=== PATIENT | female | born 1950 | race Two or more races ===

== ENCOUNTER 2018-08-08 | Inpatient (IN) | payer MEDICARE, MEDICAID ==
[~2018-08-08] VITALS: Ht 162.6 cm; Wt 65.8 kg
[2018-08-08] MEDS ORDERED: ONDANSETRON HCL 4MG/2ML INJ IV STA (06:29)
[2018-08-08] MEDS ORDERED: MORPHINE SULFATE 4 MG/ML CPJ (NOT FOR IM USE) IV STA (06:29)
[2018-08-08 07:41] LABS: BASOPHILS % 0.8 % (0.0-2.0); EOSINOPHILS % 3.6 % (0.0-5.0); HEMATOCRIT. 27.4 % (36.0-48.0); HEMOGLOBIN. 8.4 g/dL (12.0-16.0); LYMPHOCYTES % 22.3 % (20.0-50.0); MEAN CORPUSCULAR HEMOGLOBIN 19.7 pg (28.0-32.0); MEAN CORPUSCULAR VOLUME 64.3 fL (81.0-99.0); MEAN PLATELET VOLUME 7.4 fl (7.4-10.4); MONOCYTES % 10.5 % (2.0-8.0); NEUTROPHILS % 62.8 % (40.0-76.0); PLATELET 313 x1000/uL (130-400); RED BLOOD CELL COUNT 4.26 mill/uL (4.2-5.4)
[2018-08-08 07:52] LABS: CHLORIDE 112 mEq/L (98-107)
[2018-08-08] MEDS ORDERED: HYDRALAZINE 20MG/ML VIAL IV ONE (08:15)
[2018-08-08 09:00] LABS: PLATELET ESTIMATE NORMAL
[2018-08-08] MEDS ORDERED: MAGNESIUM/ALUMINUM HYDROXIDE/SIMETHICONE 30ML UDC PO PRN (09:00)
[2018-08-08] MEDS ORDERED: DOCUSATE SODIUM 100MG CAPSULE PO PRN (09:00)
[2018-08-08] MEDS ORDERED: CLONIDINE 0.1MG TABLET PO PRN ×2 (09:00→15:30)
[2018-08-08] MEDS ORDERED: GUAIFENESIN 200MG/10ML SUGAR FREE UDC PO PRN (09:00)
[2018-08-08] MEDS ORDERED: IPRATROPIUM/ALBUTEROL 0.5-3(2.5)MG/3ML NEB INH PRN (09:00)
[2018-08-08] MEDS ORDERED: ONDANSETRON HCL 4MG/2ML INJ IV PRN (09:00)
[2018-08-08] MEDS ORDERED: ACETAMINOPHEN 325MG TABLET PO PRN (09:00)
[2018-08-08] MEDS ORDERED: DIPHENHYDRAMINE 50MG/ML VIAL IV PRN (09:00)
[2018-08-08] MEDS: HYDROCODONE/ACETAMINOPHEN 5/325MG TABLET PO PRN ×2 (10:45→18:26)
[2018-08-08 11:07] LABS: PHOSPHORUS 3.6 mg/dL (2.5-4.9)
[2018-08-08 12:00] VITALS: BP 143/77
[2018-08-08] MEDS ORDERED: HYDRALAZINE 20MG/ML VIAL IV PRN (15:30)
[2018-08-08 17:03] LABS: CREATINE KINASE 44 IU/L (26-192); CREATINE KINASE MB FRACTION < 1.0 ng/mL (0.5-3.6)
[2018-08-08] MEDS: AMLODIPINE 5MG TABLET PO SCH (18:25)
[2018-08-08 20:40] VITALS: BP 144/69
[2018-08-08] MEDS: HYDRALAZINE HCL 100MG TABLET PO SCH (21:57)
[2018-08-09] VITALS (7 sets, daily range): BP systolic 123–169; BP diastolic 54–89
[2018-08-09] MEDS: HYDROCODONE/ACETAMINOPHEN 5/325MG TABLET PO PRN (02:03)
[2018-08-09 03:43] LABS: CLARITY URINE CLOUDY (CLEAR); COLOR URINE YELLOW (YELLOW); KETONES URINE NEGATIVE (NEGATIVE); LEUKOCYTE ESTERASE URINE 2+ (NEGATIVE); NITRITE URINE NEGATIVE (NEGATIVE); OCCULT BLOOD URINE NEGATIVE (NEGATIVE); PROTEIN URINE NEGATIVE (NEGATIVE); SPECIFIC GRAVITY URINE 1.017 (1.005-1.030); UROBILINOGEN URINE 0.2 E.U./dL (0.2-1.0)
[2018-08-09 03:59] LABS: *AMPHETAMINES SCREEN URINE NEGATIVE (NEGATIVE); *BARBITURATES SCREEN URINE NEGATIVE (NEGATIVE)
[2018-08-09 04:00] LABS: *BENZODIAZEPINES SCREEN URINE NEGATIVE (NEGATIVE); *COCAINE SCREEN URINE PRESUMTIVE POSITIVE (NEGATIVE); CANNABINOID URINE SCREEN NEGATIVE (NEGATIVE); METHADONE URINE SCREEN NEGATIVE (NEGATIVE); OPIATES URINE SCREEN PRESUMTIVE POSITIVE (NEGATIVE); PHENCYCLIDINE URINE SCREEN NEGATIVE (NEGATIVE)
[2018-08-09] MEDS: HYDRALAZINE HCL 100MG TABLET PO SCH ×2 (05:03→14:00)
[2018-08-09 05:41] LABS: BASOPHILS % 0.8 % (0.0-2.0); EOSINOPHILS % 2.9 % (0.0-5.0); HEMATOCRIT. 24.2 % (36.0-48.0); HEMOGLOBIN. 7.5 g/dL (12.0-16.0); LYMPHOCYTES % 30.8 % (20.0-50.0); MEAN CORPUSCULAR HEMOGLOBIN 19.9 pg (28.0-32.0); MEAN CORPUSCULAR VOLUME 64.5 fL (81.0-99.0); MEAN PLATELET VOLUME 7.7 fl (7.4-10.4); MONOCYTES % 12.3 % (2.0-8.0); NEUTROPHILS % 53.2 % (40.0-76.0); PLATELET 314 x1000/uL (130-400); RED BLOOD CELL COUNT 3.75 mill/uL (4.2-5.4); RED CELL DISTRIBUTION WIDTH 19.1 % (11.6-14.6)
[2018-08-09 08:19] LABS: CHLORIDE 112 mEq/L (98-107)
[2018-08-09 08:38] LABS: LDL CHOLESTEROL 63 mg/dL (5-100)
[2018-08-09 08:41] LABS: HDL CHOLESTEROL 67 mg/dL (40-59)
[2018-08-09] MEDS: AMLODIPINE 5MG TABLET PO SCH (10:15)
[2018-08-09] MEDS ORDERED: HYDR100T26 PO (17:46)
[2018-08-09] MEDS ORDERED: AMLO5TAB88 PO (17:46)
[2018-08-09] MEDS ORDERED: AMLODIPINE 5MG TABLET PO SCH (21:00)
[2018-08-10 07:16] LABS: ANTI-NUCLEAR ANTIBODIES DIRECT Positive (Negative); COMPLEMENT C3 141 mg/dL (82-167)
== END 2018-08-09 21:00 | disposition home or self-care (01) | DRG 918 ==
LOC: ER → 6WST 08:42 → EDBEDREQ 08:44 → EDBEDREQTM 08:44 → ENRESERV 10:08
PROVIDERS: ADMIT Internal Medicine; ATTEND Internal Medicine
DX: T40.5X1A Poisoning by cocaine, accidental (unintentional), initial encounter (principal); I13.0 Hypertensive heart and chronic kidney disease with heart failure and stage 1 through stage 4 chronic kidney disease, or unspecified chronic kidney disease; N17.9 Acute kidney failure, unspecified; I20.9 Angina pectoris, unspecified; D64.9 Anemia, unspecified; F17.200 Nicotine dependence, unspecified, uncomplicated; I50.9 Heart failure, unspecified; J44.9 Chronic obstructive pulmonary disease, unspecified; N18.9 Chronic kidney disease, unspecified; J45.909 Unspecified asthma, uncomplicated; R74.0 Nonspecific elevation of levels of transaminase and lactic acid dehydrogenase [LDH]; Y92.89 Other specified places as the place of occurrence of the external cause; Z79.899 Other long term (current) drug therapy
CPT/HCPCS: 36415; 71045; 76770; 78582; 80061; 80305; 82550; 82553; 83735; 83880; 84100; 84443; 84484; 85379; 86038; 86160; 93005; 93306; 93970; 96374; 96375; 97162; 97166; 99285; A9558; J0360; J2270; J2405

== ENCOUNTER 2018-10-17 18:18 | Emergency (ER) | payer MEDICARE, MEDICAID ==
[~2018-10-17] VITALS: Ht 162.6 cm; Wt 65.0 kg
[~2018-10-17 18:18] MED LIST: AMLO5TAB88 PO; HYDR100T26 PO
[2018-10-18] MEDS ORDERED: KETOROLAC 30MG/ML VIAL IM ONE (01:15)
[2018-10-18 02:41] LABS: CLARITY URINE CLEAR (CLEAR); COLOR URINE YELLOW (YELLOW); KETONES URINE NEGATIVE (NEGATIVE); LEUKOCYTE ESTERASE URINE 2+ (NEGATIVE); NITRITE URINE NEGATIVE (NEGATIVE); OCCULT BLOOD URINE NEGATIVE (NEGATIVE); PH URINE 5.5 (4.5-8.0); PROTEIN URINE NEGATIVE (NEGATIVE); SPECIFIC GRAVITY URINE 1.011 (1.005-1.030); UROBILINOGEN URINE 0.2 E.U./dL (0.2-1.0)
[2018-10-18] MEDS ORDERED: HYDROCODONE/ACETAMINOPHEN 5/325MG TABLET PO ONE (02:45)
[2018-10-18 04:38] VITALS: BP 186/61
== END 2018-10-18 04:39 | disposition home or self-care (01) ==
LOC: ER 18:18
DX: N39.0 Urinary tract infection, site not specified (principal); F14.10 Cocaine abuse, uncomplicated; I10 Essential (primary) hypertension; Z79.899 Other long term (current) drug therapy
CPT/HCPCS: 81003; 96372; 99283; J1885